=== PATIENT | male | born 1950 | race Caucasian/White ===

== ENCOUNTER 2017-06-06 06:35 | Emergency (ER) | payer OTHER ==
[~2017-06-06] VITALS: Ht 170.2 cm; Wt 86.2 kg
--- NOTE | ~2017-06-06 | EKG ---
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
[~2017-06-06 06:35] MED LIST: CEFDINIR300 MG PO; CLORAZEPATE DI7.5 M2 PO; FLOMAX0.4 MG PO; LOPRESSOR50 PO; NORVASC10 MG PO; TEGRETOL XR400 MG PO; VITAMIN C500 M1 PO; VITAMIN D-32000 UNIT PO
[2017-06-06] MEDS ORDERED: VITAMIN B-12500 MCG PO (07:05)
[2017-06-06 07:12] LABS: ABSOLUTE NEUTROPHILS 3.6 thou/uL (1.4-8.2); BASOPHILS 1.3 % (0.0-2.0); EOSINOPHILS 10.7 % (0.0-3.0); HEMATOCRIT 39.8 % (42.0-52.0); HEMOGLOBIN 13.4 gm/dL (14.0-18.0); LYMPHOCYTES 19.4 % (24.0-44.0); MCH 31.7 pg (26.0-34.0); MCHC 33.8 g/dL (28.0-37.0); MONOCYTES 11.6 % (1.0-8.0); PLATELET COUNT 230 thou/uL (150-400); RBC 4.23 mil/uL (4.50-6.00); RDW 13.8 % (10.5-14.5); WBC 6.4 thou/uL (4.0-11.0)
[2017-06-06 07:19] LABS: ANION GAP 7 mmol/L (7-16); BUN 15 mg/dL (7-18); CALCIUM 8.5 mg/dL (8.5-10.1); CHLORIDE 103 mmol/L (98-107); CO2 31 mmol/L (21-32); CREATININE 0.9 mg/dL (0.7-1.3); GLUCOSE 111 mg/dL (74-106); POTASSIUM 3.9 mmol/L (3.5-5.1); SODIUM 141 mmol/L (136-145)
[2017-06-06 07:20] LABS: MANUAL DIFF NO
[2017-06-06 07:32] LABS: NT-PRO BRAIN NAT PEPTIDE 936 pg/mL (<300); TROPONIN-I < 0.04 ng/mL (<0.04-0.07)
[2017-06-06] MEDS ORDERED: VENTOLIN HFA 1818 GM INH (09:48)
[2017-06-06] MEDS ORDERED: DELTASONE20 MG PO (09:48)
== END 2017-06-06 10:00 | disposition home or self-care (01) ==
LOC: ER 06:35
PROVIDERS: Emergency Medicine
DX: R53.1 Weakness (principal); I10 Essential (primary) hypertension; N40.0 Benign prostatic hyperplasia without lower urinary tract symptoms

== ENCOUNTER 2020-01-01 19:36 | Inpatient (IN) | payer OTHER ==
[~2020-01-01] VITALS: Ht 170.2 cm; Wt 85.3 kg
--- NOTE | ~2020-01-01 | EEG ---
[facility] [place] [address] ELECTROENCEPHALOGRAM Name: CRIS SIN Room #: 364-P ADM IN M.R.#: [id number] Admission: 01/01/20 Attend Phys: Jarad Hernandez MD Discharge: Date of : 48 Report #: [id number] THIS REPORT FOR: //name// CC: Jarad BEE SEN DATE OF SERVICE: 01/02/2020 This patient is having a problem with falling down. EEG was done by placing the electrode by standard 10-20 system of electrode placement. Both referential and sequential montages were used for recording. Background activity in this patient's EEG is about 8 Hz and 30 microvolt. The patient went to sleep that is associated with bilateral slowing and vertex sharp waves. Photic stimulation is unremarkable. Throughout the record, no active epileptiform activity was noticed. IMPRESSION: This EEG is intermixed with some theta range slowing on both sides. That is a nonspecific abnormality, which can occur with drowsiness, effect of psychotropic medication, dementia, encephalopathy, etc. Clinical correlation is recommended. By: [id number] Tavon Gunn MD /nt
[~2020-01-01 19:36] MED LIST changes: +DELTASONE20 MG PO; +VENTOLIN HFA 1818 GM INH; +VITAMIN B-12500 MCG PO
[2020-01-01 19:37] VITALS: BP 104/73
[2020-01-01 19:59] LABS: ABSOLUTE NEUTROPHILS 3.2 thou/uL (1.4-8.2); BASOPHILS 1.2 % (0.0-2.0); EOSINOPHILS 4.6 % (0.0-3.0); HEMATOCRIT 41.9 % (42.0-52.0); LYMPHOCYTES 30.7 % (24.0-44.0); MCHC 33.4 g/dL (28.0-37.0); MCV 92.8 fL (80.0-100.0); MONOCYTES 10.7 % (1.0-8.0); PLATELET COUNT 277 thou/uL (150-400); POLYS 52.8 % (36.0-66.0); RBC 4.51 mil/uL (4.50-6.00); RDW 14.5 % (10.5-14.5)
[2020-01-01 20:11] LABS: ANION GAP 7 mmol/L (7-16); BUN 25 mg/dL (7-18); CHLORIDE 104 mmol/L (98-107); CO2 29 mmol/L (21-32); GLUCOSE 119 mg/dL (74-106); SODIUM 140 mmol/L (136-145)
[2020-01-01 20:13] LABS: PROTIME 10.6 Seconds (9.3-11.4)
[2020-01-01 20:21] LABS: ALBUMIN 3.9 g/dL (3.4-5.0); SGOT 16 U/L (15-37); SGPT 18 U/L (30-65); TOTAL BILIRUBIN 0.4 mg/dL (<0.1-1.0); TOTAL PROTEIN 7.1 g/dL (6.4-8.2); TROPONIN-I <0.06 ng/mL (<0.06)
[2020-01-01 21:53] VITALS: BP 112/71
[2020-01-01 21:57] LABS: URINE BILIRUBIN NEGATIVE (Negative); URINE BLOOD 2+ (Negative); URINE CLARITY CLEAR; URINE COLOR YELLOW; URINE GLUCOSE-RANDOM* NEGATIVE (Negative); URINE KETONES TRACE (Negative); URINE LEUKOCYTES-REFLEX NEGATIVE (Negative); URINE NITRITE-REFLEX NEGATIVE (Negative); URINE PROTEIN (DIPSTICK) TRACE (Negative); URINE SPECIFIC GRAVITY 1.025 (1.005-1.035)
[2020-01-01 22:11] LABS: BACTERIA-REFLEX 1-9 Few /HPF (None Seen); CASTS None Seen /LPF (None Seen); CRYSTALS None Seen /LPF (None Seen); SQUAMOUS 0-3 Few /LPF (0-3); URINE WBC-REFLEX 0-5 Rare /HPF (0-5)
[2020-01-01 23:00] VITALS: BP 116/52
[2020-01-02] MEDS ORDERED: DIAZEPAM 10 MG10 M1 PO (00:30)
[2020-01-02] MEDS ORDERED: CARBAMAZEPINE100 M2 PO (01:36)
[2020-01-02] MEDS ORDERED: FLOMAX0.4 MG PO (01:37)
--- NOTE | 2020-01-02 02:28 | NUR ---
Pt arrived to [address] [place] [address] 364 from ER. Admitted for recent fall and right sided weakness which resolved quickly. Alert and oriented x4. Speech is normal for pt according to pt. He has had a right frontal lobectomy in 1970. He answers questions and follows commands appropriately. He followed NIH scale assessed by preceptor Payal and myself at time of admission. 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 He was evaluated for appropriate swallowing prior to eating late tray. Tolerated 100% of dinner. Oriented pt to room. Instructed on fall precautions, call nurse or THEATRICAL SCENIC DESIGNER for assist to BR. call light, bed alarm, safety precautions. He chooses to keep his wallet in the room along with his other belongings. MRI screen faxed. SCDS applied. Pt denied any pain. VSS, Afebrile, SR on the monitor. Pt sleeping quietly. No s/s distress.
[2020-01-02 05:06] VITALS: BP 120/53
--- NOTE | 2020-01-02 06:41 | NUR ---
Pt compliant with fall precautions . Bed alarm on. No s/s stroke noted. Bladder scanned pt due to no void tonight. 299 scanned. They straight cathed him in the ER. Pt stated he needed to drink some more cold water then he would be able to uruinate.
[2020-01-02 08:10] VITALS: BP 122/86
--- NOTE | 2020-01-02 08:16 | EKG ---
[facility] [place] [address] ELECTROCARDIOGRAM REPORT Name: CRIS SIN Room #: 364-P ADM IN M.R.#: [id number] Admission: 01/01/20 Attend Phys: Anoop Barrow MD Discharge: Date of : 48 Report #: [id number] THIS REPORT FOR: cc: CRAIG. DELICIA CHATTERJEE CRAIG. DO Couchonnal, Luis F. 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
--- NOTE | 2020-01-02 10:50 | 2DMMODE ---
[facility] [place] [address] 2 D/M-MODE ECHOCARDIOGRAM Name: CRIS SIN Room #: 364-P ADM IN M.R.#: [id number] Admission: 01/01/20 Attend Phys: Jarad Hernandez MD Discharge: Date of : 48 Report #: [id number] THIS REPORT FOR: cc: CRAIG. DELICIA CHATTERJEE CRAIG. DO Lammoglia, Francisco J. MD ~ APPROVED REPORT Study performed: 01/02/2020 09:57:31 EXAM: Comprehensive 2D, Doppler, and color-flow Echocardiogram Patient Location: Echo lab Room #: 364 Status: routine BSA: 1.96 HR: 70 bpm BP: 122/86 mmHg Rhythm: NSR Other Information Study Quality: Adequate Indications Dizziness. Hx: HTN. 2D Dimensions RVDd: 32.61 mm IVSd: 11.29 (7-11mm) LVOT Diam: 23.91 (18-24mm) LVDd: 43.33 mm PWd: 9.38 (7-11mm) LVDs: 32.22 (25-40mm) Aortic Root: 41.70 mm Volumes Left Atrial Volume (Systole) Single Plane 4CH: 43.19 mL Single Plane 2CH: 58.46 mL LA ESV Index: 28.00 mL/m2 Aortic Valve AoV Peak Damien.: 1.20 m/s AO Peak Gr.: 5.73 mmHg LVOT Max P.27 mmHg LVOT Max V: 1.03 m/s TONY Vmax: 3.87 cm2 [facility] [address] [place] [address] 2 D/M-MODE ECHOCARDIOGRAM Name: CRIS SIN Room #: 364-P [facility] IN M.R.#: [id number] Admission: 01/01/20 Attend Phys: Nino Mccarthy Discharge: Date of : 48 Report #: [id number] Mitral Valve E/A Ratio: 0.9 MV Decel. Time: 334.83 ms MV E Max Damien.: 0.43 m/s MV A Damien.: 0.49 m/s MV PHT: 97.10 ms IVRT: 114.19 ms Pulmonary Valve PV Peak Damien.: 0.78 m/s PV Peak Gr.: 2.44 mmHg Pulmonary Vein P Vein S: 0.69 m/s P Vein A: 0.32 m/s P Vein D: 0.44 m/s P Vein A Dur.: 143.0 msec P Vein S/D Ratio: 1.57 Tricuspid Valve TR Peak Damien.: 2.30 m/s RAP Estimate: 5.00 mmHg TR Peak Gr.: 21.18 mmHg PA Pressure: 26.00 mmHg Left Ventricle The left ventricle is normal size. There is normal LV segmental wall motion. There is normal left ventricular wall thickness. Left ventricular systolic function is normal. LVEF is 50-55%. Mild diastolic dysfunction is present (impaired relaxation pattern). Right Ventricle The right ventricle is normal size. The right ventricular systolic function is normal. Atria The left atrium size is normal. The right atrium size is normal. Aortic Valve The aortic valve is normal in structure. Trace aortic regurgitation. There is no aortic valvular stenosis. Mitral Valve The mitral valve is normal in structure. There is no mitral valve regurgitation noted. No evidence of mitral valve stenosis. Tricuspid Valve [facility] [address] [place] [address] 2 D/M-MODE ECHOCARDIOGRAM Name: CRIS SIN Room #: 364-P ADM IN M.R.#: [id number] Admission: 01/01/20 Attend Phys: Nino Mccarthy Discharge: Date of : 48 Report #: [id number] The tricuspid valve is normal in structure. Trace tricuspid regurgitation. Estimated PAP is 25-30mmHg. Pulmonic Valve The pulmonary valve is normal in structure. There is no pulmonic valvular regurgitation. Great Vessels Aortic root is dilated at 4.2cm. Ascending aorta is not well visualized. IVC is normal in size and collapses >50% with inspiration. Pericardium There is no pericardial effusion. <Conclusion> The left ventricle is normal size. LVEF is 50-55%. The aortic valve is normal in structure. Trace aortic regurgitation. The mitral valve is normal in structure. The tricuspid valve is normal in structure. Trace tricuspid regurgitation. Estimated PAP is 25-30mmHg. The pulmonary valve is normal in structure. There is no pericardial effusion. <ELECTRONICALLY SIGNED> By: Bill Hernandez MD 01/02/20 1048 1048 1048 Bill Hernandez MD /INF
[2020-01-02 12:55] VITALS: BP 103/72; BP 111/69; BP 112/80
--- NOTE | 2020-01-02 15:32 | NUR ---
Case opened to follow for dc planning. Chart reviewed and case discussed with the care team. Military Pilot visited with the pt at bedside and cm role introduced. Pt indicates he is waiting for MRI results. PT/OT evals initiated today. He lives alone and is normally indep with gait, adl's and iadls. He does his own shopping and errands. He goes to worship regularly. He indicates that he has a step son Dudley Barron in [place] and a sister Uyen Leyva in [place]. He does not have her information here a the [facility] but indicates that he mailed her a copy of his dpoa. He will call his step son to let him know he is at the hospital. He reports limited support and would not have anyone to drive him home or to help at dc. He is A&ox4 but slow to respond and uncertain at times. Pt has a hx of rt frontal lobectomy in the 70s. He has two steps once inside his apt to his living room and 6 down to the basement to do laundry. He recently bought a cane after he fell. Neuro consult and workup in progress. Will ask for ST and rehab evals as well. Pt asked if he would have someone to help with transport or at home if he is not able to drive at dc and he said he would have to think about it. The pt listed Pepe as an additional spokesperson but he does not recall who that is. Pt would benefit from HH f/u at a minimum to do home saftey visits and med mngt. Pt seems uncertain about how he would handle any changes to his normal routine or who he could reach out too. Will follow.
[2020-01-02 16:17] VITALS: BP 121/71
--- NOTE | 2020-01-02 16:50 | NUR ---
Assumed care approx. 0700 this AM. Pt NIH score zero. Pt noted to have slow responses and occassionally repeats the question he was asked before responding-unsure if that is his baseline mentation or not; physician aware of pts slow response. MRI, US of carotids and echo all completed this AM. Pt bladder scanned this afternoon for retention issues w/ [address] Hernandez and Marquita López, AIRCRAFT POWERPLANT REPAIRER told this morning during rounds about the urinary retention; flomax was started for this morning instead of tonight. Orthostatic BP's obtained per orders with minimal change when standing. Pt complains of no pain or dizziness today. Will continue to monitor. Pt slightly progressing toward discharge goals at this time.
[2020-01-02 20:43] VITALS: BP 109/66
--- NOTE | 2020-01-03 00:12 | NUR ---
Pt alert and oriented x4 VSS. Afebrile. No s/s stroke. Up with assist of 1 person to BR to void. Denied pain. Reinstructed pt on fall precautions due to he gets OOB without help. Sleeping quietly presently.
[2020-01-03 04:19] VITALS: BP 100/67
--- NOTE | 2020-01-03 04:44 | NUR ---
Pt is sleeping quietly. No s/s distress. NO s/s stroke/
[2020-01-03 07:43] VITALS: BP 120/84
--- NOTE | 2020-01-03 13:55 | NUR ---
per neuro patient to stay overnight - adjusting meds. patient irritated with alarm, witnessed by staff turning off chair alarm. now in chair, all fall precautions in place. will cont to monitor.
--- NOTE | 2020-01-03 14:56 | NUR ---
SW reviewed chart and spoke with nursing and attending physician. Pt is progressing towards goals for discharge. SW met with pt at bedside. Pt was dressed and stating he was going home, and someone was waiting for him. SW explaind that he does not have discharge orders. Pt states he can "walk out" if he wants. Neuro came in to see pt at that time. Neuro discussed changing pt's medications today and to monitor until tomorrow to make sure there are not any side effects. Pt agreeable. ISABEL discussed recommendation for HH services. SW provided in-network HH list with pt. Pt states he will not discuss with SW until he has discharge orders to leave. SW explained that it is good to start working on d/c planning prior to actual discharge date. Pt unwilling to choose a HH provider. SW asked if he had contacted his Dudley soto. Pt states he may have talked with him yesterday. Pt would not authorize SW to contact Dudley. SW discussed with attending physician. Mekhi consulted to evaluate pt. ISABEL is following to assist as needed with discharge planning.
[2020-01-03 15:23] VITALS: BP 111/69
[2020-01-03 15:33] VITALS: BP 106/77
[2020-01-03 19:36] VITALS: BP 133/88
--- NOTE | 2020-01-04 02:48 | NUR ---
Pt is A&Ox4. No s/s stroke. Reinstructed pt on fall precautions .He attempts to get OOB without help. Bed alarm is on. Call light in reach. Voids in bathroom adequate amounts. Denied pain.
[2020-01-04 04:10] VITALS: BP 121/85
--- NOTE | 2020-01-04 06:21 | NUR ---
PT RESTING QUIETLY . NO S/S STROKE. VSS.
[2020-01-04 07:50] VITALS: BP 124/85
[2020-01-04] MEDS ORDERED: ASPIR 8181 MG PO (08:38)
[2020-01-04] MEDS ORDERED: OXCARBAZEPINE300 MG PO (08:38)
[2020-01-04] MEDS ORDERED: B-12500 MCG PO (08:38)
[2020-01-04 11:38] VITALS: BP 122/84
[2020-01-04 11:39] VITALS: BP 132/89
--- NOTE | 2020-01-04 13:03 | NUR ---
FAXED REFERRAL TO [facility] SPOKE WITH JL IN INTAKE SHE RECEIVED REFERRAL AND WILL REVIEW PT TO DC TODAY.
[2020-01-04 13:11] VITALS: BP 132/89
[2020-01-04 17:00] VITALS: BP 132/89
--- NOTE | 2020-01-04 17:03 | NUR ---
DISCHARGE NOTE: SW reviewed chart and spoke with nursing and attending physician. Pt is medically stable for discharge home today with HH services. ISABEL met withpt at bedside to provide update and discuss discharge need. Pt requested HH referral to be sent to [facility]. convention planner faxed referral and discharge orders/summary to HH. Contact info for [facility] placed in pt's discharge summary. Pt had transportation home. SW offered to contact pt's stepson or sister to notify of pt's discharge. Pt declined offer and states he will be fine. Attending physician recommended that pt follow up with his PCP regarding his driving restrictions. SW made hotline report to [facility] to ensure pt is able to manage his needs at home. Report given to Vera. No additional SW needs identified at this time, but is available to assist should needs arise.
== END 2020-01-04 13:55 | disposition home health service (06) | DRG 101 ==
LOC: ER 19:36 → 3W 21:38 → EROBS 21:38 → 3W 22:36 → ENTRNSPT 01-04 13:47 → EDTRNSPTSTS 01-04 13:52 → 3W 01-04 13:55
PROVIDERS: Nurse Practitioner Family; Physician Assistant; ADMIT Hospitalist
DX: G40.909 Epilepsy, unspecified, not intractable, without status epilepticus (principal); M25.561 Pain in right knee; I10 Essential (primary) hypertension; N40.0 Benign prostatic hyperplasia without lower urinary tract symptoms; M25.469 Effusion, unspecified knee; R53.1 Weakness; E53.8 Deficiency of other specified B group vitamins; G31.84 Mild cognitive impairment of uncertain or unknown etiology; G47.00 Insomnia, unspecified; Z79.82 Long term (current) use of aspirin; Z79.899 Other long term (current) drug therapy
CPT/HCPCS: 10879

== ENCOUNTER 2021-03-30 11:31 | Emergency (ER) | payer OTHER ==
[~2021-03-30] VITALS: Ht 170.2 cm; Wt 81.7 kg
--- NOTE | ~2021-03-30 | EMS ---
[place] [address] EMS Patient Care Report Name: CRIS SIN Room #: DEP MONICA Barba#: [id number] Admission: 03/30/21 Attend Phys: Discharge: 03/30/21 Date of : 48 Report #: [id number] THIS REPORT FOR: //name// Report Transmitted: 03/30/2021 17:00 EMS Care Summary [place], [place]/[facility] Incident [id number] @ 03/30/2021 10:44 Incident Location [address] [place] [address] Patient CRIS SIN Male, 70 Years 1950 Patient Address [address] [place], [place] [id number] Patient History Epilepsy, Patient Allergies No known allergies, Patient Medications Diazepam, Chief Complaint I may have had a seizure Disposition Transported No Lights/[place] [facility] Reason Sick Person Transported To [facility] Narrative Called for a sick. Upon arrival, pt was CAMEJO x 3, met us at the door. He stated he feels like he may have had a seizure and that he had fallen. He also [place] [id number] EMS Patient Care Report Name: CRIS SIN Room #: DEP Prabha.#: [id number] Admission: 03/30/21 Attend Phys: Discharge: 03/30/21 Date of : 48 Report #: [id number] c/o feeling dizzy. Pt is a little unsteady on his feet. His Dr's office called us. He requests transport to [facility] ER for further eval & tx. Pt assisted tho the EMS cot and loaded into the ambulance w/o incident. Vitals obtained. [address] elevation. 18g IV and D-stick. Vitals repeated. Pt says he does not hurt anywhere, no signs trauma present. En route: no significant changes. RR to ER. Arrived: pt taken to ER #3 and moved to their bed w/o incident. Pt care & report to ER staff. Initial Vitals @11:10P: 63,CO: 5,SpO2: 94, @11:04P: 61,R: 16,Pain: 0/10,GCS: 15,CO: 1,SpO2: 96,AK Suspected: false @11:02P: 63,R: 16,BP: 133/79,Pain: 0/10,GCS: 15,SpO2: 95,Revised Trauma: 12, @11:05P: 64,R: 16,BP: 129/79,Pain: 0/10,GCS: 15,Glucose: 150,Revised Trauma: 12, Assessments @10:56MENTAL:Person Oriented,Time Oriented,Place Oriented,Event Oriented,SKIN:HEENT:Eyes: Left Pupil: 3-mm,Eyes: Right Pupil: 3-mm,Head/Face: No Abnormalities,Neck/Airway: No Abnormalities,LUNG SOUNDS:General: No Abnormalities,ABDOMEN:General: No Abnormalities,PELVIS//GI:EXTREMITIES:Left Arm: No Abnormalities,Right Arm: No Abnormalities,Left Leg: No Abnormalities,Right Leg: No Abnormalities,PULSE:Radial: 2+ Normal,NEURO:Abnormal Gait,Other,Seizures, Impression Dizziness Procedures @11:05Saline Lock 8cc (18 ga) Site: Forearm-LeftResponse: UnchangedSucceeded@11:0412-Lead ECGResponse: UnchangedSucceeded@10:56ALS AssessmentResponse: UnchangedSucceeded@11:00StretcherResponse: Unchanged@11:023-Lead ECGResponse: UnchangedSucceeded Timeline 10:42,Call Received 10:42,Dispatch Notified 10:44,Dispatched 10:45,En Route 10:55,On Scene 10:56,At Patient 10:56,ALS Assessment,Response: UnchangedSucceeded, 11:00,Stretcher,Response: Unchanged 11:02,BP: 133/79 M,PULSE: 63,RR: 16 R,SPO2: 95 Ox,ETCO2: ,BG: ,PAIN: 0,GCS: 15, 11:02,3-Lead ECG,Response: UnchangedSucceeded, 11:04,12-Lead ECG,Response: UnchangedSucceeded, 11:04,BP: / M,PULSE: 61,RR: 16 R,SPO2: 96 Ox,ETCO2: ,BG: ,PAIN: 0,GCS: 15, 11:05,BP: 129/79 M,PULSE: 64,RR: 16 R,SPO2: Ox,ETCO2: ,B,PAIN: 0,GCS: [address] [address] EMS Patient Care Report Name: CRIS SIN Room #: [facility] MONICA Barba#: [id number] Admission: 03/30/21 Attend Phys: Discharge: 03/30/21 Date of : 48 Report #: [id number] 15, 11:05,Saline Lock 8cc 18 ga Site: Forearm-Left,Response: UnchangedSucceeded, 11:10,BP: / M,PULSE: 63,RR: R,SPO2: 94 Ox,ETCO2: ,BG: ,PAIN: ,GCS: , 11:15,Depart Scene 11:27,At Destination 11:45,Call Closed Disclaimer v1.1 Copyright 2020 [employer] This EMS Care Summary contains data elements from the applicable legal record (which may be displayed differently). It is designed to provide pertinent information for the following purposes: continuity of care, clinical quality, and state data reporting. The complete legal record is available to ED staff and administrators of the receiving hospital in [email or web address]'s Patient Tracker. All data is provided "as is."
[~2021-03-30 11:31] MED LIST changes: +ASPIR 8181 MG PO; +B-12500 MCG PO; +CARBAMAZEPINE100 M2 PO; +DIAZEPAM 10 MG10 M1 PO; +OXCARBAZEPINE300 MG PO
[2021-03-30 12:16] LABS: ABSOLUTE NEUTROPHILS 5.8 thou/uL (1.4-8.2); BASOPHILS 0.8 % (0.0-2.0); EOSINOPHILS 4.3 % (0.0-3.0); HEMATOCRIT 39.9 % (42.0-52.0); HEMOGLOBIN 13.6 gm/dL (14.0-18.0); LYMPHOCYTES 14.8 % (24.0-44.0); MCHC 34.1 g/dL (28.0-37.0); MCV 87.9 fL (80.0-100.0); MONOCYTES 5.9 % (1.0-8.0); PLATELET COUNT 245 thou/uL (150-400); POLYS 74.2 % (36.0-66.0); RBC 4.54 mil/uL (4.50-6.00); RDW 13.4 % (10.5-14.5); WBC 7.8 thou/uL (4.0-11.0)
[2021-03-30 12:41] LABS: TROPONIN-I <0.06 ng/mL (<0.06)
[2021-03-30 13:00] VITALS: BP 113/71
[2021-03-30 14:18] LABS: CALCIUM 8.6 mg/dL (8.5-10.1); CREATININE 0.9 mg/dL (0.7-1.3); POTASSIUM 3.9 mmol/L (3.5-5.1)
--- NOTE | 2021-03-30 14:25 | EKG ---
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 : 1950 Requested By: Rosa Lewis Order Number: [id number] MD: Erickson Nevarez Measurements Intervals [place] Rate: 61 P: 48 WI: 203 QRS: 33 QRSD: 175 T: 28 QT: 454 QTc: 458 Interpretive Statements Sinus rhythm Right bundle branch block Baseline wander in lead(s) V2 Compared to ECG 01/01/2020 19:48:48 No significant changes Electronically Signed On 03-30-2021 14:25:13 CDT by Erickson Nevarez [email or web address] <ELECTRONICALLY SIGNED> By: Erickson Nevarez MD, [facility] 03/30/21 1425 1227 26 Erickson Nevarez MD, FAC /EPI
== END 2021-03-30 14:30 | disposition home or self-care (01) ==
LOC: ER 11:31
PROVIDERS: Student in an Organized Health Care Education/Training Program
DX: R74.8 Abnormal levels of other serum enzymes (principal); I10 Essential (primary) hypertension; R56.9 Unspecified convulsions; R42 Dizziness and giddiness; Z98.890 Other specified postprocedural states; W18.39XA Other fall on same level, initial encounter; Y93.89 Activity, other specified; Y92.89 Other specified places as the place of occurrence of the external cause; Y99.8 Other external cause status

== ENCOUNTER 2021-04-22 14:35 | Inpatient (IN) | payer OTHER ==
[~2021-04-22] VITALS: Ht 170.2 cm; Wt 82.6 kg
[2021-04-22 14:43] VITALS: BP 126/72
[2021-04-22 15:25] LABS: ABSOLUTE NEUTROPHILS 7.2 thou/uL (1.4-8.2); BASOPHILS 0.4 % (0.0-2.0); EOSINOPHILS 1.3 % (0.0-3.0); HEMOGLOBIN 13.2 gm/dL (14.0-18.0); LYMPHOCYTES 13.1 % (24.0-44.0); MCH 29.8 pg (26.0-34.0); MCHC 33.9 g/dL (28.0-37.0); MONOCYTES 11.8 % (1.0-8.0); PLATELET COUNT 272 thou/uL (150-400); POLYS 73.4 % (36.0-66.0); RBC 4.43 mil/uL (4.50-6.00); RDW 13.7 % (10.5-14.5); WBC 9.8 thou/uL (4.0-11.0)
[2021-04-22 15:33] LABS: CALCIUM 8.6 mg/dL (8.5-10.1); CREATININE 0.8 mg/dL (0.7-1.3); POTASSIUM 3.3 mmol/L (3.5-5.1)
[2021-04-22 15:41] LABS: ALBUMIN 3.7 g/dL (3.4-5.0); TOTAL BILIRUBIN 0.6 mg/dL (0.2-1.0); TOTAL PROTEIN 6.5 g/dL (6.4-8.2)
[2021-04-22 18:13] LABS: AMP/METHAMP Negative (Negative); BARBITURATES Negative (Negative); BENZODIAZEPINES POSITIVE (Negative); COCAINE Negative (Negative); METHADONE Negative (Negative); OPIATES Negative (Negative); PCP Negative (Negative)
[2021-04-22 19:18] LABS: URINE BILIRUBIN NEGATIVE (Negative); URINE BLOOD 1+ (Negative); URINE CLARITY CLEAR; URINE COLOR YELLOW; URINE GLUCOSE-RANDOM* NEGATIVE (Negative); URINE KETONES 1+ (Negative); URINE LEUKOCYTES-REFLEX NEGATIVE (Negative); URINE NITRITE-REFLEX NEGATIVE (Negative); URINE PROTEIN (DIPSTICK) TRACE (Negative); URINE SPECIFIC GRAVITY 1.025 (1.005-1.035); URINE UROBILINOGEN 0.2 E.U./dl (0.2-1.0)
[2021-04-22 19:29] LABS: BACTERIA-REFLEX 1-9 Few /HPF (None Seen); CASTS None Seen /LPF (None Seen); CRYSTALS None Seen /LPF (None Seen); SQUAMOUS None Seen /LPF (0-3); URINE RBC 3-10 Few /HPF (NONE SEEN); URINE WBC-REFLEX 0-5 Rare /HPF (0-5)
--- NOTE | 2021-04-22 19:30 | NUR ---
report given to trupti leary
[2021-04-22 20:07] VITALS: BP 127/78
[2021-04-22 20:44] VITALS: BP 127/78
--- NOTE | 2021-04-23 04:07 | NUR ---
ASSUMED CARE PF PT AT 2015HRS FROM ED. PT IS AOX4 AND LETS NEEDS BE KNOWN. PT WAS ORIENTED TO THE UNIT AND HIS ROOM. FALL PRECAUTION IN PLACE. PT DENIED PAIN, NAUSEA OR SOA. ASSESSMENT CHARTED. PT WAS ABLE TO ANSWER ALL ADMISSION RELATED QUESTIONS AND SIGN CONSENTS. ASSESSMENT CHARTED. HUANG IN PLACE AND PATIENT. WOUND PICS TAKEN. ORDERS RECEIVED AND STARTED. PT RAN NSR ON TELE. PT WAS ABLE TO GET COMFORTABLE AND SLEEP PART OF THE SHIFT. VSS NO S/S OF ACUTE DISTRESS. WILL CONTINUE TO MONITOR.
[2021-04-23 05:45] LABS: ABSOLUTE NEUTROPHILS 5.7 thou/uL (1.4-8.2); BASOPHILS 0.5 % (0.0-2.0); EOSINOPHILS 2.6 % (0.0-3.0); HEMATOCRIT 36.5 % (42.0-52.0); HEMOGLOBIN 12.3 gm/dL (14.0-18.0); LYMPHOCYTES 14.4 % (24.0-44.0); MCH 29.6 pg (26.0-34.0); MCHC 33.8 g/dL (28.0-37.0); MCV 87.7 fL (80.0-100.0); MONOCYTES 11.4 % (1.0-8.0); PLATELET COUNT 264 thou/uL (150-400); POLYS 71.1 % (36.0-66.0); RBC 4.16 mil/uL (4.50-6.00); RDW 14.1 % (10.5-14.5)
[2021-04-23 05:55] VITALS: BP 119/65
[2021-04-23 06:05] LABS: CALCIUM 8.1 mg/dL (8.5-10.1); CREATININE 0.6 mg/dL (0.7-1.3); MAGNESIUM 1.8 mg/dL (1.8-2.4); POTASSIUM 3.8 mmol/L (3.5-5.1)
[2021-04-23 07:37] VITALS: BP 134/82
--- NOTE | 2021-04-23 12:17 | NUR ---
PT ADMITTED RELATED TO WEAKNESS AND FALLS. CM REVIEWED CHART AND SPOKE WITH CARE TEAM. CM MET WITH PT AT BEDSIDE THIS DAY. PT APPEARED PT BE A&O X4 BUT SLOW TO RESPOND. PT INDICATED THAT HE LIVES ALONE IN AN APARTMENT WITH 5 STEPS TO ENTER, 2 IN APARTMENT, AND 6 TO LAUNDRY AREA. 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 PT INDICATED HE HAD BEEN INDEPENDENT WITH ADLS BUT H&P INDICATES HE HAD RECENT FREQUENT FALLS. PT HAD [facility] PER CHART REVIEW IN THE PAST. PT INDICATED HE PLANS TO RETURN HOME ONCE MEDICALLY STABLE. PT HAS A STEP SON, AND FRIEND LISTED A CONTACTS. CM FOLLOWING REGARDING DC PLANNING.
--- NOTE | 2021-04-23 14:46 | NUR ---
Received awake on bed. Due medications given as prescribed. On telemetry; no complains and signs of chest pain, crushing sensation and heaviness. Assisted in ADLs. On room air. Vital signs stable. On regular diet- tolerating well; no nausea, no vomiting and no abdominal pain noted; assisted and encouraged in eating and drinking. With garg in place- output measured and recorded accordingly. NS at 100cc/hr, infusing well at R AC. No signs and complains of pain noted during assessment. Falls bundle in place; pt able to turn self in bed. Seen and examined by PT/OT; able to sit on the recliner. To continue monitoring patient.
[2021-04-23 15:48] VITALS: BP 127/69
[2021-04-23 20:09] VITALS: BP 138/86
--- NOTE | 2021-04-24 04:37 | NUR ---
Assumed pt care at 1900. A/OX4, VSS. C/o non cardiac chest pain with coughing medicated with Tylenol with relief reported. Pt's garg was kinked at the beginning of shift and urine was blood tinged as well as some on the underwear;garg adjusted and flushed with 100cc NS,urine clear at this time. Fall precauitons in place,reminded to call for help before trying to get out bed. NSR on telemetry,will continue to monitor pt.
[2021-04-24 05:07] LABS: HEMATOCRIT 34.8 % (42.0-52.0); HEMOGLOBIN 11.9 gm/dL (14.0-18.0); MCH 29.9 pg (26.0-34.0); MCHC 34.1 g/dL (28.0-37.0); MCV 87.7 fL (80.0-100.0); RBC 3.96 mil/uL (4.50-6.00); WBC 7.1 thou/uL (4.0-11.0)
[2021-04-24 05:49] LABS: CREATININE 0.9 mg/dL (0.7-1.3); POTASSIUM 3.6 mmol/L (3.5-5.1)
[2021-04-24 07:40] VITALS: BP 122/78
[2021-04-24 07:42] LABS: FOLIC ACID 14.7 ng/mL (8.6-58.9)
[2021-04-24] MEDS ORDERED: OXCARBAZEPINE300 MG PO (12:16)
[2021-04-24] MEDS ORDERED: DIAZEPAM 10 MG10 M1 PO (12:17)
--- NOTE | 2021-04-24 12:50 | NUR ---
FAXED REFERRAL TO [facility]. CM STATED PATIENT HAD SERVICE WITH THEM IN THE PAST. WILL CONFIRM THEY CAN ACCEPT AND BEGIN SERVICES. [facility] P [phone]; FAX
[2021-04-24 14:03] VITALS: BP 122/78
[2021-04-24 15:31] VITALS: BP 136/79
--- NOTE | 2021-04-24 16:48 | NUR ---
ASSUMED CARE OF PATIENT AT APPROX. 0700. ASSESSMENT CHARTED. MEDICATIONS ADMINISTERED PER MAR. VSS. PATIENT IS A&OX4 WITH FOREGTFULNESS BUT MAKES NEEDS KNOWN. PATIENT WORKED WITH PT/OT AND DID WELL. PATIENT VOICED UNDERSTANDING OF FALL PRECAUTIIONS. PATIENT WAS DEEMED MEDICALLY STABLE TO DISCHARGE FROM NEUROLOGY & INTERALIST STANDPOINT. PATIENT NOT ABLE TO DRIVE; CAB VOUCHER FILLED OUT BY AND HOME HEALTH ARRANGED FOR PATIENT. SAL WAS DC'D. DISCHARGED AT APPROX 1545 W NO ISSUES. DISCHARGE INSTRUCTIONS GIVEN ALONG WITH MEDICATION INFO. NO ISSUES VOICED.
== END 2021-04-24 16:00 | disposition home health service (06) | DRG 558 ==
LOC: ER 14:35 → 4W 17:34 → EROBS 17:34 → 4W 20:10
PROVIDERS: Nurse Practitioner; ADMIT Hospitalist; ATTEND Hospitalist
DX: M62.82 Rhabdomyolysis (principal); G40.909 Epilepsy, unspecified, not intractable, without status epilepticus; I10 Essential (primary) hypertension; Z60.2 Problems related to living alone; R53.81 Other malaise; N40.1 Benign prostatic hyperplasia with lower urinary tract symptoms; R33.8 Other retention of urine; Z79.82 Long term (current) use of aspirin; Z79.899 Other long term (current) drug therapy
CPT/HCPCS: 10045

== ENCOUNTER 2021-12-15 10:28 | Inpatient (IN) | payer OTHER ==
[~2021-12-15] VITALS: Ht 170.2 cm; Wt 76.1 kg
--- NOTE | ~2021-12-15 | EMS ---
[address] [address] EMS Patient Care Report Name: CRIS SIN Room #: 213-P ADM IN M.R.#: [id number] Admission: 12/15/21 Attend Phys: Monica Herzog Discharge: Date of : 48 Report #: [id number] THIS REPORT FOR: //name// Report Transmitted: 12/16/2021 09:58 EMS Care Summary [place], [place]/[facility] Incident [id number] @ 12/15/2021 09:37 Incident Location [address] Patient CRIS SIN Male, 71 Years 1950 Patient Address [address] [place], [place] [id number] Patient History Other,Epilepsy,Hypertension (HTN), Patient Allergies No known allergies, Patient Medications Meclizine, Finasteride, Metoprolol, Chief Complaint FALL Disposition Transported No Lights/[place] Dispatch Reason Falls Transported To [facility] Narrative MEDIC 30 RESPONDS TO A NURSING FACILITY ON A REPORTED FALL. UPON [facility] EMS FINDS ELDERLY MALE SITTING UPRIGHT IN WHEELCHAIR WITH STAFF NEARBY. IT IS REPORTED BY STAFF THAT PT WAS IN HIS ROOM, ATTEMPTING TO TRANSITION HIMSELF [address] [address] EMS Patient Care Report Name: CRIS SIN Room #: 213-P [facility] IN M.R.#: [id number] Admission: 12/15/21 Attend Phys: Monica Herzog Discharge: Date of : 48 Report #: [id number] FROM HIS WHEELCHAIR TO BED WHEN PT FELL TO THE FLOOR. FALL WAS REPORTEDLY WITNESSED BY PT'S ROOMMATE. NO LOC IS DESCRIBED. PT DENIES PAIN OR INJURY WITH INCIDENT, AND THE ONLY OBVIOUS CURRENT COMPLAINT IS OF DRY MOUTH. STAFF REQUEST PT BE SEEN AT ED PRECAUTION, CITING A PREVIOUS NECK INJURY AND NEED TO ENSURE NECK WAS NOT FURTHER INJURED WITH FALL. PT TRANSPORTED WITH ONGOING ASSESSMENT. REPORT TO STAFF UPON [facility]. Initial Vitals @10:03P: 100,R: 14,BP: 125/84,SpO2: 93, @09:57P: 99,R: 15,BP: 127/85,Pain: 0/10,GCS: 15,Glucose: 137,CO: 0,SpO2: 92,Revised Trauma: 12, Assessments @09:46MENTAL:Time Oriented,Person Oriented,Place Oriented,Event Oriented,SKIN:HEENT:Neck/Airway: Other,Head/Face: No Abnormalities,LUNG SOUNDS:ABDOMEN:PELVIS//GI:EXTREMITIES:Capillary Refill: Right Upper: < 2 Sec,Left Arm: No Abnormalities,Right Arm: No Abnormalities,Left Leg: No Abnormalities,Right Leg: No Abnormalities,PULSE:Pedal: 2+ Normal,Radial: 2+ Normal,NEURO:No Abnormalities,@09:57MENTAL:Place Oriented,Event Oriented,Time Oriented,Person Oriented,SKIN:HEENT:Neck/Airway: Other,Head/Face: No Abnormalities,LUNG SOUNDS:ABDOMEN:PELVIS//GI:EXTREMITIES:Left Arm: No Abnormalities,Right Arm: No Abnormalities,Left Leg: No Abnormalities,Right Leg: No Abnormalities,PULSE:NEURO:No Abnormalities, Impression Generalized Weakness Procedures @09:46 ALS Assessment Response: UnchangedSucceeded @09:51 Stretcher Response: Unchanged Timeline 09:35,Call Received 09:35,Dispatch Notified 09:37,Dispatched 09:38,En Route 09:42,On Scene 09:46,At Patient 09:46,ALS Assessment,Response: UnchangedSucceeded, 09:51,Stretcher,Response: Unchanged 09:57,BP: 127/85 M,PULSE: 99,RR: 15 R,SPO2: 92 Ox,ETCO2: ,B,PAIN: 0,GCS: 15, 10:03,BP: 125/84 M,PULSE: 100,RR: 14 R,SPO2: 93 Ox,ETCO2: ,BG: ,PAIN: ,GCS: , 10:08,Depart Scene 10:19,[place] [address] EMS Patient Care Report Name: CRIS SIN MANNING Room #: 213-P ADM IN M.R.#: [id number] Admission: 12/15/21 Attend Phys: Monica Herzog Discharge: Date of : 48 Report #: [id number] 10:55,Call Closed Disclaimer v1.1 Copyright 2021 [employer] This EMS Care Summary contains data elements from the applicable legal record (which may be displayed differently). It is designed to provide pertinent information for the following purposes: continuity of care, clinical quality, and state data reporting. The complete legal record is available to ED staff and administrators of the receiving hospital in [employer] Patient Tracker. All data is provided "as is."
[2021-12-15 10:29] VITALS: BP 130/90
[2021-12-15 11:45] LABS: HEMATOCRIT 46.3 % (42.0-52.0); HEMOGLOBIN 15.3 gm/dL (14.0-18.0); MCH 31.3 pg (26.0-34.0); MCV 94.9 fL (80.0-100.0); RBC 4.88 mil/uL (4.50-6.00); RDW 14.9 % (10.5-14.5)
[2021-12-15 11:58] LABS: CALCIUM 8.1 mg/dL (8.5-10.1); CREATININE 1.4 mg/dL (0.7-1.3); POTASSIUM 4.3 mmol/L (3.5-5.1)
[2021-12-15 12:04] LABS: ALBUMIN 3.5 g/dL (3.4-5.0); TOTAL BILIRUBIN 0.6 mg/dL (0.2-1.0)
[2021-12-15 13:48] LABS: URINE BILIRUBIN NEGATIVE (Negative); URINE BLOOD 2+ (Negative); URINE CLARITY CLEAR; URINE COLOR YELLOW; URINE GLUCOSE-RANDOM* NEGATIVE (Negative); URINE KETONES NEGATIVE (Negative); URINE LEUKOCYTES-REFLEX TRACE (Negative); URINE NITRITE-REFLEX NEGATIVE (Negative); URINE PROTEIN (DIPSTICK) 1+ (Negative); URINE SPECIFIC GRAVITY >= 1.030 (1.005-1.035); URINE UROBILINOGEN 0.2 E.U./dl (0.2-1.0)
[2021-12-15 14:01] LABS: FINE GRANULAR CASTS 0-3 Few /LPF (None Seen)
[2021-12-15 14:02] LABS: CRYSTALS None Seen /LPF (None Seen); HYALINE CASTS 0-3 Few /LPF (None Seen); URINE RBC >20 Many /HPF (NONE SEEN); URINE WBC-REFLEX 0-5 Rare /HPF (0-5)
[2021-12-15 14:12] LABS: SQUAMOUS None Seen /LPF (0-3)
[2021-12-15 21:20] VITALS: BP 98/51
[2021-12-15 22:15] VITALS: BP 106/66
[2021-12-15] MEDS ORDERED: FINASTERIDE5 MG PO (23:50)
[2021-12-15] MEDS ORDERED: METOPROLOL SUCC50 MG PO (23:52)
[2021-12-15] MEDS ORDERED: CARBAMAZEPINE400 MG PO (23:55)
[2021-12-15] MEDS ORDERED: MECLIZINE HCL12.5 MG PO (23:57)
[2021-12-16] MEDS ORDERED: NARCAN4 MG NASAL
[2021-12-16] MEDS ORDERED: IBU-200200 MG PO (00:04)
[2021-12-16] MEDS ORDERED: METHOCARBAMOL750 MG PO (00:06)
[2021-12-16] MEDS ORDERED: NORCO 10-325 T1 EACH PO (00:09)
[2021-12-16] MEDS ORDERED: SENNA PLUS TAB1 EACH PO (00:11)
[2021-12-16 04:00] VITALS: BP 109/72
[2021-12-16 04:20] LABS: CALCIUM 7.7 mg/dL (8.5-10.1); CREATININE 0.9 mg/dL (0.7-1.3); POTASSIUM 3.7 mmol/L (3.5-5.1)
[2021-12-16 04:24] LABS: ALBUMIN 2.7 g/dL (3.4-5.0); PHOSPHORUS 2.6 mg/dL (2.6-4.7)
[2021-12-16 07:45] VITALS: BP 105/68
[2021-12-16 12:10] VITALS: BP 118/76
[2021-12-16 15:26] VITALS: BP 112/72
[2021-12-16 19:39] VITALS: BP 113/69
[2021-12-17 04:30] VITALS: BP 105/63
[2021-12-17 07:39] VITALS: BP 110/70
[2021-12-17] MEDS ORDERED: KEPPRA 500 MG500 M1 PO (09:01)
[2021-12-17] MEDS ORDERED: OXCARBAZEPINE300 MG PO (09:03)
--- NOTE | 2021-12-29 12:33 | EEG ---
[facility] [place] [address] ELECTROENCEPHALOGRAM Name: CRIS SIN Room #: 213-P [facility] IN M.R.#: [id number] Admission: 12/15/21 Attend Phys: Monica Jefferson Karonjesse Discharge: 12/17/21 Date of : 48 Report #: [id number] THIS REPORT FOR: //name// DATE OF SERVICE: 12/16/2021 This patient's EEG is being done for altered mental status and history of seizure. EEG was done by placing the electrode by standard 10-20 system of electrode placement. Both referential and sequential montages were used for recording. Background activity in this patient's EEG appeared to be going up to about 9-10 Hz and 30 microvolt. The patient goes to sleep and that is associated with bilateral slowing and vertex sharp waves. Photic stimulation is unremarkable. EEG is intermixed with theta range slowing throughout this record. IMPRESSION: This patient's EEG is intermixed with theta range slowing on both sides. That is a nonspecific finding, which can occur with dementia, effect of psychotropic medication, encephalopathy, etc. No active epileptiform activity was noticed during this examination. <ELECTRONICALLY SIGNED> By: Tavon Gunn MD 12/29/21 1233 0830 [id number] Tavon Gunn MD /nt
== END 2021-12-17 16:30 | DRG 100 ==
LOC: ER 10:28 → 2N 14:46 → EROBS 14:46 → 2N 22:24
PROVIDERS: Student in an Organized Health Care Education/Training Program; ADMIT Hospitalist; ATTEND Hospitalist
DX: G40.909 Epilepsy, unspecified, not intractable, without status epilepticus (principal); G93.41 Metabolic encephalopathy; N17.0 Acute kidney failure with tubular necrosis; F05 Delirium due to known physiological condition; G45.9 Transient cerebral ischemic attack, unspecified; N39.0 Urinary tract infection, site not specified; R47.01 Aphasia; I67.89 Other cerebrovascular disease; W18.30XA Fall on same level, unspecified, initial encounter; R09.02 Hypoxemia; I08.2 Rheumatic disorders of both aortic and tricuspid valves; I12.9 Hypertensive chronic kidney disease with stage 1 through stage 4 chronic kidney disease, or unspecified chronic kidney disease; N18.9 Chronic kidney disease, unspecified; R53.81 Other malaise; E53.8 Deficiency of other specified B group vitamins; E86.0 Dehydration; Z04.3 Encounter for examination and observation following other accident; R26.9 Unspecified abnormalities of gait and mobility; N40.0 Benign prostatic hyperplasia without lower urinary tract symptoms; R29.6 Repeated falls; Z20.822 Contact with and (suspected) exposure to COVID-19; Z91.81 History of falling; Y93.89 Activity, other specified; Y92.129 Unspecified place in nursing home as the place of occurrence of the external cause; Y99.8 Other external cause status; Z79.899 Other long term (current) drug therapy; Z90.09 Acquired absence of other part of head and neck
CPT/HCPCS: 10081; 10194